=== PATIENT | female | born 1935 | race Caucasian/White ===

== ENCOUNTER 2018-10-08 16:22 | Inpatient (IN) ==
[2018-10-08] MEDS ORDERED: POLYETHYLENE (MIRALAX) 17 GM PACK ONE (16:30)
[2018-10-08] MEDS ORDERED: CEFAZOLIN 1000MG 1,000 MG/7.5 ML SYR IV STA ×3 (16:31→19:06)
[2018-10-08] MEDS ORDERED: fentaNYL citrate 100 MCG/2 ML VIAL ONE ×4 (16:32→21:40)
[2018-10-08] MEDS ORDERED: PROPOFOL IV EMULSION 10 MG/ML 20 ML VIAL IV ONE ×2 (16:33→19:09)
--- NOTE | 2018-10-08 16:54 | XRay Report ---
XR tibia fibula RT 2V CLINICAL HISTORY: Open fracture. COMPARISON: None FINDINGS: Note is made of a comminuted moderately displaced fracture through the distal diaphysis of the right tibia. Fracture is displaced 2.5 cm. This represents an open fracture. Soft tissue gas is present. There is also a displaced angulated mid to distal diaphyseal fracture of the right fibula. A n additional nondisplaced acute distal right fibular fracture is noted. In addition, there is an jesus tional acute transverse nondisplaced proximal right tibial fracture with possible intra-articular ext ension given a right knee lipohemarthrosis. IMPRESSION: 1. Moderately displaced comminuted open fracture of the distal diaphysis of the right tibia. Displace d angulated mid to distal diaphyseal fracture of the right fibula. 2. Acute nondisplaced proximal right tibial fracture with possible intra-articular extension given a right knee lipohemarthrosis. 3. Acute nondisplaced distal right fibular fracture. Electronically signed by: Sajan Lopes M.D. 10/08/2018 4:53 PM
[2018-10-08 17:12] LABS: Basophils # (auto) 0.02 K/uL (0-0.2); Basophils % (auto) 0.2 %; Eosinophils # (auto) 0.12 K/uL (0-0.5); Eosinophils % (auto) 1.2 %; Hematocrit (blood only) 37.2 % (37-47); Hemoglobin 12.3 g/dL (12.0-16.0); Immature Granulocytes # (auto) 0.03 K/uL (0.00-0.02); Immature Granulocytes % (auto) 0.3 %; Lymphocytes # (auto) 1.93 K/uL (1.2-3.4); Lymphocytes % (auto) 18.8 %; Mean Corpuscular Hgb Conc 33.1 g/dL (32-36); Mean Corpuscular Volume 95.9 fL (80-100); Mean Platelet Volume 11.8 fL (7.4-10.4); Monocytes % (auto) 7.8 %; Neutrophils # (auto) 7.36 K/uL (1.4-6.5); Neutrophils % (auto) 71.7 %; Platelet Count 168 K/uL (130-400); RDW Coefficient of Variation 12.8 % (11.5-14.5); RDW Standard Deviation 44.5 fL (36.4-46.3); Red Blood Count 3.88 M/uL (4.2-5.4); White Blood Count 10.26 K/uL (4.8-10.8)
--- NOTE | 2018-10-08 17:26 | XRay Report ---
XR tibia fibula RT 2V HISTORY: 83 years-old Female post reduction status post reduction of acute comminuted tibial and fib ular fractures COMPARISON: Right tibia and fibula radiographs of same day at 4:29 PM TECHNIQUE: 2 views of the right tibia and fibula were obtained status post reduction and casting. FINDINGS: Acute comminuted distal tibia and fibular fractures are redemonstrated. Acute nondisplaced proximal t ibial fracture is unchanged. Deep tissue air compatible with open fracture component. There is improv ed alignment of the distal tibia and fibular fracture status post reduction. Lateral displacement of the distal tibial fracture measures up to 7 mm with posterior displacement of 7 mm. [place] medial angul ation of the mid to distal tibial fracture now measures up to 25 degrees. IMPRESSION: Moderately improved alignment of the tibial and fibular fractures status post reduction a nd casting. Persistent displacement and angulation as above. The above report was generated using voice recognition software. It may contain grammatical, syntax o r spelling errors. Electronically signed by: Bal Ramirez M.D. 10/08/2018 5:25 PM
--- NOTE | 2018-10-08 17:27 | XRay Report ---
XR chest 1V portable HISTORY: 83 years-old Female op clearance preoperative exam. No acute chest complaints reported COMPARISON: None available TECHNIQUE: Portable AP view of the chest FINDINGS: Cardiomediastinal and hilar silhouettes are within normal limits. Calcified plaque the thoracic aorta . Mild interstitial coarsening, possibly chronic. No pneumothorax, pleural effusion or overt pulmonar y edema. Demineralized appearance of the bones. Degenerative changes of the shoulders and spine. IMPRESSION: 1. No acute process. 2. Mild interstitial coarsening, possibly on a chronic basis. The above report was generated using voice recognition software. It may contain grammatical, syntax o r spelling errors. Electronically signed by: Bal Ramirez M.D. 10/08/2018 5:26 PM
[2018-10-08 17:30] LABS: Albumin Level 3.2 gm/dl (3.4-5.0); BUN Creatinine Ratio 16.9 (10-20); Calcium 8.7 mg/dl (8.5-10.1); Creatinine Clr Calc Pharmacy 26.9 ml/min; Est GFR (African American) 46.6; Est GFR (Non-African American) 40.2
[2018-10-08] MEDS ORDERED: D5W AND 1/2NSS 1,000 ML IV SCH (17:30)
[2018-10-08 17:32] LABS: Albumin Globulin Ratio 0.9 (0.9-2); Bilirubin,Total 0.5 mg/dl (0.2-1); Globulin 3.7 gm/dl (2.5-4.0); Total Protein 6.9 gm/dl (6.4-8.2)
[2018-10-08] MEDS ORDERED: GENTAMICIN CONSULT ACTIVE PRN (17:32)
[2018-10-08] MEDS ORDERED: HYDROmorphone INJ 1 MG/ML SYRINGE IV PRN (17:40)
[2018-10-08] MEDS ORDERED: PENICILLIN G POTASSIUM 2.5 MU in DEXTROSE 5% 100 ML IV STA (17:41)
[2018-10-08] MEDS ORDERED: GENTAMICIN SULFATE 260 MG in DEXTROSE 5% 100 ML IV SCH (17:45)
--- NOTE | 2018-10-08 17:51 | History & Physical Report ---
Date of Service October 08, 2018 Assessment & Plan (1) Open fracture of right tibia and fibula: This patient has a grade 3 open tibia fracture. He is being taken immediately to the operating room for an I&D of her right tibia and IM rodding of her right tibia. The patient and family have been informed of our decision and of course of her problem. Present on Admission?: Yes History of Present Illness Open tibia injury from the [facility] Primary Care Provider: NO PCP Allergies Allergy/AdvReac Type Severity Reaction Status Date / Time No Known Allergies Allergy Verified 03/31/02 14:16 N Allergy Unknown Uncoded 03/31/02 14:19 NONE Allergy Unknown Uncoded 03/31/02 14:19 Past Med/Surg History Medical History Fracture, tibia, open HTN (hypertension) High cholesterol No pertinent past medical history Tibia and fibula open fracture, right Family History Other No pertinent family history Social History Preferred Language: Moldovan Communication Ability: Effective marital status: Feels Safe at Home: Yes Smoking Status: Never smoker Review of Systems Respiratory: as per Subjective / HPI Cardiovascular: Additional Comments: no chest pain or palpitations Gastrointestinal: as per Subjective / HPI no nausea or vomitting Musculoskeletal: + deformity, + swelling and + limited range of motion Neurologic: + numbness Hematologic / Lymphatic: + easy bleeding Results & Data Vital Signs (Past 12 Hours) Vital Signs Temp Pulse Resp BP Pulse Ox 10/08/18 17:30 79 25 H 191/105 H 97 10/08/18 17:15 75 24 167/81 H 98 10/08/18 17:05 75 22 211/93 H 97 10/08/18 17:00 69 215/87 H 100 10/08/18 16:56 65 209/92 H 100 10/08/18 16:50 74 182/85 H 100 10/08/18 16:48 92 10/08/18 16:46 73 199/87 H 92 10/08/18 16:40 69 96 10/08/18 16:36 77 96 10/08/18 16:30 75 204/92 H 95 10/08/18 16:20 36.8 C 74 18 204/92 H 98 Code Status & VTE Plan Code Status full code VTE Prophylaxis Plan VTE Prophylaxis will be ordered: Yes PG Care Time/CCT Total # of Minutes Spent Total Time Spent with Patient: Total time spent is greater than 50% in coordination of care (as documented) at patient's floor/unit and/or counseling patient: (1) Open fracture of right tibia and fibula Encounter type: initial encounter Open fracture type: open type I or II Qualified Code(s): S82.201B - Unspecified fracture of shaft of right tibia, initial encounter for open fracture type I or II; S82.401B - Unspecified fracture of shaft of right fibula, initial encounter for open fracture type I or II
[2018-10-08 18:00] LABS: INR 1.2 (0.9-1.1); Prothrombin Time 11.9 Seconds (9.0-12.0)
[2018-10-08 18:11] LABS: Partial Thromboplastin Ratio 0.8
--- NOTE | 2018-10-08 18:40 | Anesthesiology Consultation ---
Date of Service October 08, 2018 Assessment & Plan (1) Encounter for pre-operative examination: Chart Review Chart Review: Acceptable Risk for Surgery and Patient NOT seen in Pre Admission Testing Consults Requested none ASA [id number] Proposed Anesthesia Anesthesia Type: General Risk / Benefits Reviewed With: PT / POA / Parent / Guardian, Accepts Plan and Informed Consent Obtained History Surgery Operation Date: 10/08/18 18:00 Proposed Procedures p Intramedullary Nail Tibia(Left) - Eleazar Plasencia DO Height/Weight Height: 5 ft 2 in Weight: 50 kg Allergies Allergy/AdvReac Type Severity Reaction Status Date / Time azithromycin [From Zithromax] Allergy Confusion Unverified 10/08/18 18:22 N Allergy Unknown Unknown Uncoded 10/08/18 18:15 NONE Allergy Unknown Unknown Uncoded 10/08/18 18:15 Medications Home Medications Medication Instructions Recorded Confirmed Last Taken lisinopril 0 mg PO DAILY 10/08/18 10/08/18 10/08/18 metoprolol succinate 0 mg PO DAILY 10/08/18 10/08/18 10/08/18 simvastatin 0 mg PO PM 10/08/18 10/08/18 10/07/18 NPO Date Last Intake of Fluids: 10/08/18 Time Last Intake of Fluids: 12:00 Date Last Intake of Solids: 10/08/18 Time Last Intake of Solids: 10:30 Past Medical History Medical History Fracture, tibia, open HTN (hypertension) High cholesterol No pertinent past medical history Tibia and fibula open fracture, right Exercise / Class Metabolic Activity III < 4 Walking/Shop/Light housework Negative for chest pain or shortness of breath. Past Family History Family History Other No pertinent family history Past Surgical History Surgical History History of hernia repair History of hysterectomy History of surgery on arm Past Anesthesia History No Hx of Anesthesia Complications History of PONV No Hx of PONV and No Hx of Motion Sickness Social History Smoking Status: Former smoker (Quit in 1996) Do You Dip or Chew Tobacco: No Hx Alcohol Use: Yes alcohol intake frequency: a few times a week Hx Substance Use: No Review of Systems Patient denies active symptoms of GERD. Positive for pain in right leg Physical Exam Vital Signs Last Vital Signs Temp 36.8 C 10/08/18 16:20 Pulse 80 10/08/18 18:15 Resp 19 10/08/18 18:15 BP 188/91 H 10/08/18 18:15 Pulse Ox 98 10/08/18 18:15 Constitutional not obese ENMT Mouth: + dentures (Upper) Thyromental Distance: < 3.5 Finger Breadths Mallampati Class: II Mouth / Teeth: 1. Lower partial Neck normal visual inspection; neck extension not limited Respiratory normal respiratory effort Auscultation: lungs clear to auscultation bilaterally Cardiovascular Rate/Rhythm: regular rate and regular rhythm Heart Sounds: no murmur Psychiatric Orientation: alert and oriented x 3 Testing Laboratory Results 10/08/18 16:50 10/08/18 16:50 PT 11.9 Seconds (9.0-12.0) 10/08/18 17:34 INR 1.2 (0.9-1.1) H 10/08/18 17:34 APTT 21.0 Seconds (21.0-31.0) 10/08/18 17:34 Electrocardiogram Date: 10/08/18 Findings: + NSR @ (73) Occasional PVCs and PACs, RBBB, LAFB, minimal voltage criteria for LVH
--- NOTE | 2018-10-08 18:52 | Pre Anesthesia Assessment ---
Entered by Jazmyn Conley acting as a scribe for Minor Resendez DO Date of Service October 08, 2018 Pre Sedation Assessment Vital Signs Temp Pulse Pulse Resp BP BP Pulse Ox 10/08/18 18:46 37.3 C 91 H 20 186/84 H 95 10/08/18 18:15 80 19 188/91 H 98 10/08/18 18:00 76 16 183/86 H 97 10/08/18 17:45 85 21 192/91 H 97 10/08/18 17:30 79 25 H 191/105 H 97 10/08/18 17:15 75 24 167/81 H 98 10/08/18 17:05 75 22 211/93 H 97 10/08/18 17:00 69 215/87 H 100 10/08/18 16:56 65 209/92 H 100 10/08/18 16:50 74 182/85 H 100 10/08/18 16:48 92 10/08/18 16:46 73 199/87 H 92 10/08/18 16:40 69 96 10/08/18 16:36 77 96 10/08/18 16:30 75 204/92 H 95 10/08/18 16:20 36.8 C 74 18 204/92 H 98 Cardiovascular RRR, no murmur, no edema + regular rate + S1 normal Respiratory normal respiratory effort, lungs clear to auscultation + respiratory effort normal; no retractions and no dullness to percussion Pre-Sedation Airway Assessment Smoking Status: Never smoker Hx Sleep Apnea: No Hx Difficult Intubation: No Short, Thick Neck: No Thyromental Distance: < 3.5 Finger Breadths Oral Cavity: no Loose Teeth Mallampati Class: I ASA: ASA2 NPO Status Date of Last Intake of Fluids: 10/08/18 Date of Last Intake of Solid Food: 10/08/18 Notes The planned sedation has been discussed with the patient. Informed Consent was obtained. I have identified the patient, determined the appropriateness of sedation and have assessed the patient immediately prior to the procedure. All medicine(s) and interventions are by my order. The scribe's documentation has been prepared under my direction and personally reviewed by me in its entirety. I confirm that the note above accurately reflects all work, treatment, procedures, and medical decision making performed by me.
--- NOTE | 2018-10-08 18:54 | Post Anesthesia Assessment ---
Entered by Jazmyn Conley acting as a scribe for Minor Resendez DO Date of Service October 08, 2018 Post Sedation Assessment Vital Signs Temp Pulse Pulse Resp BP BP Pulse Ox 10/08/18 18:46 37.3 C 91 H 20 186/84 H 95 10/08/18 18:15 80 19 188/91 H 98 10/08/18 18:00 76 16 183/86 H 97 10/08/18 17:45 85 21 192/91 H 97 10/08/18 17:30 79 25 H 191/105 H 97 10/08/18 17:15 75 24 167/81 H 98 10/08/18 17:05 75 22 211/93 H 97 10/08/18 17:00 69 215/87 H 100 10/08/18 16:56 65 209/92 H 100 10/08/18 16:50 74 182/85 H 100 10/08/18 16:48 92 10/08/18 16:46 73 199/87 H 92 10/08/18 16:40 69 96 10/08/18 16:36 77 96 10/08/18 16:30 75 204/92 H 95 10/08/18 16:20 36.8 C 74 18 204/92 H 98 Recovery Score Activity: Moves 4 extremities Respiration: Deep Breath/Cough Circulation: +/-20% PreAnes Value Consciousness: Fully Awake Oxygen Saturation: O2 needed for >90% Post Anesthesia Score: 9 Post Sedation Plan On clinical assessment, the patient appears to have tolerated the sedation without complications. Patient is recovering as anticipated. Patient will continue to be monitored by nursing and may be discharged when sedation discharge criteria are met per below protocol. Upon Completions of procedure and additional 15 minutes continue every 5 minute vital signs and the P.A.R. score; then discharge to a Phase I or Fast Track to Phase II per the following guidelines: * Discharge Patient to appropriate Phase II area if PAR is 8 or greater or return to pre- procedure baseline. The post - procedure orders will be as directed. * If PAR score is less than 8 or not return to pre-procedure baseline then patient will follow Phase I monitoring till PAR is reached for Phase II. The Phase I may be done in procedure room or may call to secure a Phase I area. * If naloxone or flumazenil are used for reversal, hold in Phase I for continued monitoring from when last reversal dose was given for a minimum of 60 minutes or longer pending the nurse and/or physician discretion of patient condition before discharge to Phase II. Please call the Sedation Physician to re-evaluate and complete post-note for discharge to Phase II area. Do NOT discharge from procedure sedation or Phase 1 until post- sedation evaluation note is complete by procedure /sedation MD Sedation Discharge Instructions to be given to the patient at discharge to home. The scribe's documentation has been prepared under my direction and personally reviewed by me in its entirety. I confirm that the note above accurately reflects all work, treatment, procedures, and medical decision making performed by me.
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
[2018-10-08] MEDS ORDERED: metroNIDAZOLE 500 MG/100 ML BAG IV STA (19:07)
[2018-10-08] MEDS ORDERED: ROCURONIUM BROMIDE 10 MG/ML 5 ML VIAL ONE (19:09)
[2018-10-08] MEDS ORDERED: DEXAMETHASONE SOD INJ 4 MG/ML VIAL ONE (19:09)
[2018-10-08] MEDS ORDERED: ONDANSETRON INJ 2 MG/ML 2 ML VIAL ONE (19:09)
[2018-10-08] MEDS ORDERED: LIDOCAINE HCL 2% 2 ML VIAL/AMP(20MG/ML) INFIL ONE (19:09)
[2018-10-08] MEDS ORDERED: CEFEPIME 1,000 MG in SYRINGE 0 ML IV STA (19:12)
[2018-10-08] MEDS ORDERED: CEFEPIME CONSULT ACTIVE PRN (19:13)
[2018-10-08] MEDS ORDERED: METRONIDAZOLE CONSULT ACTIVE PRN (19:14)
[2018-10-08] MEDS ORDERED: ePHEDrine sulfate 50 MG/ML AMP ONE (20:07)
[2018-10-08] MEDS ORDERED: CEFAZOLIN 1000MG 1,000 MG/7.5 ML SYR IV ONE (20:20)
[2018-10-08] MEDS ORDERED: ePHEDrine sulfate 50 MG/ML SYR ONE (20:23)
[2018-10-08] MEDS ORDERED: fentaNYL citrate 100 MCG/2 ML VIAL IV PRN (20:29)
[2018-10-08] MEDS ORDERED: ePHEDrine sulfate 50 MG/ML AMP IV PRN (20:29)
[2018-10-08] MEDS ORDERED: ONDANSETRON INJ 2 MG/ML 2 ML VIAL IV PRN ×2 (20:29→22:31)
[2018-10-08] MEDS ORDERED: ATROPINE SULFATE 0.1 MG/ML 10ML SYR IV PRN (20:29)
--- NOTE | 2018-10-08 21:23 | Post Operative Brief Note ---
PG Immediate Post Op with CF Date of Surgery October 08, 2018 Pre & Post Diagnosis Operation Date: 10/08/18 18:00 Pre-Op Diagnosis: Open tibia/fibula fracture Post-Op Diagnosis: Open tibia/fibula fracture Procedure Operation Date: 10/08/18 18:00 Actual Procedures p Irrigation and Debridement of Right Tibia; Intramedullary Nail Tibia(Right) - Eleazar Plasencia DO Surgeon Eleazar Plasencia DO [employer] Elio Estimated Blood Loss 200 Findings Consistent with Post-Op Diagnosis Drains Cornelius Catheter (Inserted by Dr. Plasencia) Anesthesia Type General Complications none Disposition Accompanied Patient To Recovery: Yes Overlapping Procedure I was immediately available: during the entire case.
--- NOTE | 2018-10-08 21:24 | Fluoroscopy Report ---
FL tibia/fibula RT 2V CLINICAL HISTORY: Internal fixation. COMPARISON STUDY: Right tibia and fibula radiographs performed earlier today. FLUOROSCOPY TIME: 51 seconds. FLUOROSCOPIC IMAGES: 5. FINDINGS: These images demonstrate placement of an intramedullary celestino and screws within the right tib ia which fixates the tibial fracture with significant improvement in alignment. Proximal right tibial fracture is noted. Right fibular fracture is again noted. The hardware is intact. There are no unexp ected radiopaque foreign bodies. IMPRESSION: Expected findings following internal fixation of the right tibial fracture. Electronically signed by: Sajan Lopes M.D. 10/08/2018 9:23 PM
--- NOTE | 2018-10-08 22:13 | Anesthesiology Progress Note ---
Date of Service October 08, 2018 Anesthesia Post Procedure Vital Signs Vital Signs: Temp Pulse Pulse Pulse Resp BP BP 10/08/18 22:00 94 H 16 182/90 H 10/08/18 21:50 94 H 16 181/92 H 10/08/18 21:40 84 16 181/89 H 10/08/18 21:30 36.8 C 91 H 18 180/89 H 10/08/18 18:46 37.3 C 91 H 20 186/84 H 10/08/18 18:15 80 19 188/91 H 10/08/18 18:00 76 16 183/86 H 10/08/18 17:45 85 21 192/91 H 10/08/18 17:30 79 25 H 191/105 H 10/08/18 17:15 75 24 167/81 H 10/08/18 17:05 75 22 211/93 H 10/08/18 17:00 69 215/87 H 10/08/18 16:56 65 209/92 H 10/08/18 16:50 74 182/85 H 10/08/18 16:48 10/08/18 16:46 73 199/87 H 10/08/18 16:40 69 10/08/18 16:36 77 10/08/18 16:30 75 204/92 H 10/08/18 16:20 36.8 C 74 18 204/92 H Pulse Ox 10/08/18 22:00 99 10/08/18 21:50 100 10/08/18 21:40 100 10/08/18 21:30 100 10/08/18 18:46 95 10/08/18 18:15 98 10/08/18 18:00 97 10/08/18 17:45 97 10/08/18 17:30 97 10/08/18 17:15 98 10/08/18 17:05 97 10/08/18 17:00 100 10/08/18 16:56 100 10/08/18 16:50 100 10/08/18 16:48 92 10/08/18 16:46 92 10/08/18 16:40 96 10/08/18 16:36 96 10/08/18 16:30 95 10/08/18 16:20 98 Pain Intensity Right Foot: Pain Intensity: 5 Transfer of Care Handoff Completed per policy Notes Mental Status: alert / awake / arousable and participated in evaluation Patient Amnestic to Procedure: Yes Nausea / Vomiting: adequately controlled Pain: adequately controlled Airway Patency, RR, SpO2: stable & adequate BP & HR: stable & adequate Hydration State: stable & adequate Anesthetic Complications: no major complications apparent and Pt Satisfied with anesthetic care
[2018-10-08] MEDS ORDERED: MAGNESIUM HYDROXIDE SUSP 30 ML UDC PO PRN (22:31)
[2018-10-08] MEDS ORDERED: METOCLOPRAMIDE HCL INJ 5 MG/ML 2 ML VIAL IV PRN (22:31)
[2018-10-08] MEDS ORDERED: BISACODYL 10 MG SUPP PR PRN (22:31)
[2018-10-08] MEDS ORDERED: SODIUM CHLORIDE 0.9% 1000ML 1,000 ML IV SCH (22:31)
[2018-10-08] MEDS ORDERED: NALOXONE HCL 0.4 MG/1 ML VIAL/CARP IV PRN (22:31)
[2018-10-08] MEDS ORDERED: HYDROmorphone INJ 0.5 MG/0.5 ML SYR IV PRN (22:31)
[2018-10-09] MEDS: ACETAMINOPHEN 500 MG TAB PO SCH ×4 (00:07→21:13)
[2018-10-09] MEDS: metroNIDAZOLE 500 MG/100 ML BAG IV SCH ×3 (03:52→19:21)
[2018-10-09] MEDS ORDERED: metroNIDAZOLE 500 MG/100 ML BAG IV SCH (04:00)
[2018-10-09 08:44] LABS: Hematocrit (blood only) 29.1 % (37-47); Hemoglobin 9.7 g/dL (12.0-16.0); Mean Corpuscular Hgb Conc 33.3 g/dL (32-36); Mean Corpuscular Volume 95.7 fL (80-100); Mean Platelet Volume 11.6 fL (7.4-10.4); Platelet Count 149 K/uL (130-400); RDW Coefficient of Variation 12.8 % (11.5-14.5); RDW Standard Deviation 44.5 fL (36.4-46.3); Red Blood Count 3.04 M/uL (4.2-5.4); White Blood Count 7.78 K/uL (4.8-10.8)
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
[2018-10-09 09:21] LABS: BUN Creatinine Ratio 17.2 (10-20); Calcium 7.7 mg/dl (8.5-10.1); Creatinine Clr Calc Pharmacy 30.1 ml/min; Est GFR (African American) 53.4; Est GFR (Non-African American) 46.1; Potassium 5.1 mmol/L (3.5-5.1)
[2018-10-09] MEDS: FERROUS GLUCONATE 324 MG TAB PO SCH ×2 (09:51→17:10)
[2018-10-09] MEDS: MULTIVITAMIN TAB PO SCH (09:51)
[2018-10-09] MEDS: DOCUSATE SODIUM 100 MG CAP PO SCH ×2 (09:51→21:13)
[2018-10-09] MEDS: ASPIRIN 81 MG ECTAB PO SCH ×2 (13:59→21:13)
[2018-10-09] MEDS: TRAMADOL HCL 50 MG TABLET PO PRN (20:27)
[2018-10-09] MEDS: CEFEPIME 1,000 MG in SYRINGE 0 ML IV SCH (21:13)
[2018-10-09] MEDS: SENNA 8.6 MG TAB PO SCH (21:13)
[2018-10-10] MEDS: ACETAMINOPHEN 500 MG TAB PO SCH ×3 (05:10→20:45)
[2018-10-10] MEDS: metroNIDAZOLE 500 MG/100 ML BAG IV SCH ×3 (05:11→20:44)
--- NOTE | 2018-10-10 08:28 | Progress Note ---
DATE: 10/10/2018 SUBJECTIVE: She is alert and oriented this morning, afebrile, 36.5 temperature, blood pressure controlled. White cell count 7.8, 29.1 hematocrit. OBJECTIVE: Wound clean, examined with Dr. Park here in the office in the floor. ASSESSMENT: Status post grade 3B open tibia fracture. PLAN: We will do a dressing change today, we will get Dr. Park to weigh on her case. We were looking the possibility of a wound VAC application tomorrow which will be Thursday, the and potential discharge home Thursday or Thursday of this week. We will keep her nonweightbearing. I have physical therapy weighing in on her. She may benefit from hospital bed as she is pretty active, I think regular bed may be appropriate for her. She will not require long-term antibiotics.
[2018-10-10] MEDS: DOCUSATE SODIUM 100 MG CAP PO SCH ×2 (09:50→20:45)
[2018-10-10] MEDS: ASPIRIN 81 MG ECTAB PO SCH ×2 (09:51→20:45)
[2018-10-10] MEDS: MULTIVITAMIN TAB PO SCH (09:51)
--- NOTE | 2018-10-10 09:55 | Surgery Progress Note ---
Date of Service October 10, 2018 Assessment & Plan (1) Open fracture of right tibia and fibula: The wound looks great. I recommended placement of a VAC to decrease edema and promote granulation. I would anticipate either delayed primary closure or healing by secondary intention given how the wound looks today. Will consult [facility] for VAC placement; follow up at wound center after discharge. Subjective POD #2 s/p IM celestino right tibia for Gustillo Grade 3B open fracture. Seen at bedside this am with Dr. Plasencia. She offers no complaints, pain is controlled. Review of Systems Integumentary: as per Subjective / HPI Physical Exam Constitutional: WD/WN, vitals as above Cardiovascular: Vessels: dorsalis pedis pulses present Extremities: normal capillary refill; no edema Skin: no rashes, warm and dry sutures/kaykay intact to right lower leg. No erythema or drainage. Open wound right anterior lower leg 10x1.5 cm, exposed muscle with surrounding tissue edema, all skin appears viable, and there is no exposed bone Psychiatric: A+Ox3, euthymic affect Results & Data Vital Signs (Past 12 Hours) Vital Signs Temp Pulse Resp BP Pulse Ox 10/10/18 07:16 97.7 F 81 16 163/71 H 96 10/09/18 23:25 98.1 F 83 17 159/72 H 93 Laboratory Results Laboratory Tests 10/08/18 10/09/18 16:50 08:24 WBC 7.78 Hgb 9.7 L Albumin 3.2 L PG Care Time/CCT Total # of Minutes Spent Total Time Spent with Patient: Total time spent is greater than 50% in coordination of care (as documented) at patient's floor/unit and/or counseling patient: (1) Open fracture of right tibia and fibula Encounter type: subsequent encounter Fracture healing: with routine healing Open fracture type: open type III Qualified Code(s): S82.201F - Unspecified fracture of shaft of right tibia, subsequent encounter for open fracture type IIIA, IIIB, or IIIC with routine healing; S82.401F - Unspecified fracture of shaft of right fibula, subsequent encounter for open fracture type IIIA, IIIB, or IIIC with routine healing
[2018-10-10] MEDS: TRAMADOL HCL 50 MG TABLET PO PRN ×2 (10:45→20:43)
[2018-10-10] MEDS: FERROUS GLUCONATE 324 MG TAB PO SCH ×2 (13:37→16:16)
[2018-10-10] MEDS ORDERED: Nursing to Pharmacy Communication ONE (15:35)
[2018-10-10] MEDS: LISINOPRIL 10 MG TAB PO SCH (16:16)
[2018-10-10] MEDS: METOPROLOL SUCC 25MG EXT REL TAB PO SCH (16:16)
[2018-10-10] MEDS: CEFEPIME 1,000 MG in SYRINGE 0 ML IV SCH (20:44)
[2018-10-10] MEDS: SENNA 8.6 MG TAB PO SCH (20:45)
[2018-10-11] MEDS: ACETAMINOPHEN 500 MG TAB PO SCH ×3 (05:22→21:11)
[2018-10-11] MEDS: LISINOPRIL 10 MG TAB PO SCH (07:59)
[2018-10-11] MEDS: DOCUSATE SODIUM 100 MG CAP PO SCH ×2 (08:00→20:18)
[2018-10-11] MEDS: METOPROLOL SUCC 25MG EXT REL TAB PO SCH (08:00)
[2018-10-11] MEDS: FERROUS GLUCONATE 324 MG TAB PO SCH ×2 (08:00→16:18)
[2018-10-11] MEDS: ASPIRIN 81 MG ECTAB PO SCH ×2 (08:00→20:18)
[2018-10-11] MEDS: MULTIVITAMIN TAB PO SCH (08:00)
--- NOTE | 2018-10-11 08:00 | Operative Report ---
DATE OF OPERATION: 10/08/2018 PREOPERATIVE DIAGNOSIS: Grade IIIB open tib-fib fracture of the right lower extremity. POSTOPERATIVE DIAGNOSIS: Grade IIIB open tib-fib fracture of the right lower extremity. PROCEDURE: Included, 1. Irrigation and debridement of the right lower extremity. 2. Intramedullary nailing, locked medullary nail, reamed, right lower extremity. SURGEON: Eleazar Plasencia DO INDUSTRIAL MAINTENANCE TECH: PAPO Manjarrez. COMPLICATIONS: Zero. BLOOD LOSS: 200 mL. ANESTHETIC: General. DESCRIPTION OF PROCEDURE: The patient was seen and evaluated in the emergency room setting. She had a grade IIIB open tib-fib fracture. Bone was exposed. Soft tissue was extensive. The laceration was approximately 15-20 cm. Consent was taken. The patient was brought back to the operating room. A general intubated anesthetic provided, Cornelius catheter administered as well. Triple antibiotics provided to the patient. I first scrubbed her with Betadine scrub from tip of her toe up to her mid thigh. We then cleared off the Betadine, prepped and draped her sterilely, and did a formal irrigation and debridement with 9 liters of normal saline. We used a bone pick. We used a curette. We debrided any of the soft tissue that was all questionable. There was a significant medial anterior soft tissue defect the bone had protruded through, both the proximal and distal aspects. There were other lacerations as well, medial and lateral side, although these were much smaller. After careful irrigation, we redraped and reprepped with ChloraPrep, Betadine, and then dried ChloraPrep, dried, draped sterile. We commenced with the actual operative procedure. I made a skin incision by the proximal tibial tuberosity. I was able to retract the patellar tendon. I was able to engage the Steinmann pin down through, reamed proximally to about 10 cm. I was able to pass a guidewire down proximally to distally. I was able to lock the distal fragment to the proximal fragment. We have got essentially an anatomic reduction of the tibia. The fibula was left ____. We reamed sequentially up to an 11 size and selected a size 10 tibial nail, locked proximally and distally with various sized screws. We then irrigated, began our closure. The proximal wounds were closed with 0 Vicryl suture and staple gun. The distal wounds were closed with a staple gun. The actual wound from the trauma was basically left open. I did approximate some of the skin on the distal aspects of the wound, but the majority of wound, approximately 8-10 cm, was left open, not to close this. A sterile dressing applied. A moist saline impregnated gauze pack was placed over the open wound. Sterile dressings were applied throughout, sterilely wrapped, extubated, elevated, to PACU in improved, stable condition. No apparent complications. Blood loss 200 mL. IMPLANTS USED: By the [employer]. I attest to the content of the Intraoperative Record and any orders documented therein. Any exception s are noted below.
--- NOTE | 2018-10-11 08:31 | Anesthesiology Progress Note ---
Date of Service October 11, 2018 Anesthesia Post Procedure Vital Signs Vital Signs: Temp Pulse Pulse Resp BP BP Pulse Ox 10/11/18 07:52 36.6 C 69 14 155/66 H 95 10/10/18 23:51 36.4 C L 72 16 136/63 94 10/10/18 15:29 169/69 H 10/10/18 15:14 36.5 C 71 16 186/72 H 95 Pain Intensity Right Foot: Pain Intensity: 4 Notes Mental Status: alert / awake / arousable and participated in evaluation Patient Amnestic to Procedure: Yes Nausea / Vomiting: adequately controlled Pain: adequately controlled Airway Patency, RR, SpO2: stable & adequate BP & HR: stable & adequate Hydration State: stable & adequate Anesthetic Complications: no major complications apparent and Pt Satisfied with anesthetic care
[2018-10-11] MEDS: SENNA 8.6 MG TAB PO SCH (20:18)
[2018-10-12] MEDS: ACETAMINOPHEN 500 MG TAB PO SCH ×2 (05:30→14:20)
[2018-10-12] MEDS: ASPIRIN 81 MG ECTAB PO SCH (07:41)
[2018-10-12] MEDS: MULTIVITAMIN TAB PO SCH (07:41)
[2018-10-12] MEDS: METOPROLOL SUCC 25MG EXT REL TAB PO SCH (07:41)
[2018-10-12] MEDS: LISINOPRIL 10 MG TAB PO SCH (07:41)
[2018-10-12] MEDS: FERROUS GLUCONATE 324 MG TAB PO SCH (07:41)
[2018-10-12] MEDS: DOCUSATE SODIUM 100 MG CAP PO SCH (07:41)
[2018-10-12] MEDS: TRAMADOL HCL 50 MG TABLET PO PRN (15:42)
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
== END 2018-10-12 17:29 | DRG 494 ==
LOC: ED 16:22 → 3N 18:21 → ASU 18:21 → 3N 21:47